=== PATIENT | male | born 1960 | race African-American/Black ===

== ENCOUNTER 2019-05-03 14:24 | Emergency (ER) | payer OTHER ==
[~2019-05-03] VITALS: Ht 162.6 cm; Wt 45.0 kg
[2019-05-03] MEDS ORDERED: MAGNESIUM/ALUMINUM HYDROXIDE/SIMETHICONE 30ML UDC PO STA (15:04)
[2019-05-03] MEDS ORDERED: SODIUM CHLORIDE 0.9% 1,000 ML IV ONE (15:04)
[2019-05-03] MEDS ORDERED: FAMOTIDINE 20MG/2ML VIAL IV STA (15:04)
[2019-05-03] MEDS ORDERED: ONDANSETRON HCL 4MG/2ML INJ IV STA (15:04)
[2019-05-03 15:41] LABS: HEMATOCRIT. 37.6 % (42.0-52.0); MEAN CORPUSCULAR HEMOGLOBIN 32.8 pg (28.0-32.0); MEAN CORPUSCULAR VOLUME 95.1 fL (80.0-94.0); MEAN PLATELET VOLUME 8.5 fl (7.4-10.4); PLATELET 93 x1000/uL (130-400); RED BLOOD CELL COUNT 3.96 mill/uL (4.7-6.1); RED CELL DISTRIBUTION WIDTH 15.2 % (11.6-14.6)
[2019-05-03 15:48] LABS: CHLORIDE 104 mEq/L (98-107); INR 1.2; PROTHROMBIN TIME 11.9 sec (9.6-11.0)
[2019-05-03 16:41] LABS: PLATELET ESTIMATE DECREASED
[2019-05-03 17:08] LABS: CLARITY URINE CLOUDY (CLEAR); COLOR URINE DARK YELLOW (YELLOW); KETONES URINE NEGATIVE (NEGATIVE); LEUKOCYTE ESTERASE URINE NEGATIVE (NEGATIVE); NITRITE URINE NEGATIVE (NEGATIVE); OCCULT BLOOD URINE 2+ (NEGATIVE); PROTEIN URINE 2+ (NEGATIVE); SPECIFIC GRAVITY URINE 1.017 (1.005-1.030)
[2019-05-03] MEDS ORDERED: CEFTRIAXONE 1 G PREMIX 50 ML IV ONE (17:15)
[2019-05-03] MEDS ORDERED: AZITHROMYCIN 500 MG in DEXT 5% WATER 250 ML IV SCH (17:15)
[2019-05-03 21:51] VITALS: BP 118/74
== END 2019-05-03 22:05 | disposition short-term general hospital (02) ==
LOC: ER 14:24
DX: J18.9 Pneumonia, unspecified organism (principal); R00.0 Tachycardia, unspecified; R94.5 Abnormal results of liver function studies; J45.909 Unspecified asthma, uncomplicated; F12.10 Cannabis abuse, uncomplicated
CPT/HCPCS: 36415; 71045; 74176; 80053; 81003; 83690; 83880; 84484; 85025; 85610; 93005; 96361; 96365; 96368; 96375; 99285; J0456; J0696; J2405; J3490; J7030; J7060